=== PATIENT | male | born 1980 | race Caucasian/White ===

== ENCOUNTER 2019-04-28 08:35 | Emergency (ER) | payer OTHER ==
[~2019-04-28] VITALS: Ht 182.9 cm; Wt 97.5 kg
[2019-04-28 08:37] VITALS: Ht 182.9 cm; Wt 97.5 kg
[2019-04-28] MEDS ORDERED: HYDROCODONE-IB1 EAC3 PO (09:10)
[2019-04-28] MEDS ORDERED: ZANAFLEX4 MG PO (09:10)
[2019-04-28 10:03] VITALS: BP 134/87
== END 2019-04-28 10:03 | disposition home or self-care (01) ==
LOC: D.ER 08:35
DX: S16.1XXA Strain of muscle, fascia and tendon at neck level, initial encounter (principal); X58.XXXA Exposure to other specified factors, initial encounter; Y93.9 Activity, unspecified; Y92.019 Unspecified place in single-family (private) house as the place of occurrence of the external cause